=== PATIENT | female | born 1955 | race Caucasian/White ===

== ENCOUNTER → 2019-01-03 | Outpatient (CLI) | payer MEDICARE ==
[2019-01-03 11:36] LABS: Blood Urea Nitrogen 16 mg/dL (7-17)
--- NOTE | 2019-01-03 13:10 | MR ---
EXAMINATION TYPE: MR brain and iac wo/w con DATE OF EXAM: 01/03/2019 COMPARISON: None HISTORY: Hearing loss, dizziness TECHNIQUE: Multiplanar, multisequence images of the brain and brainstem is performed without and with IV contras t, utilizing 7.5 mL intravenous Gadavist . Small [id number], high-resolution images through the in ternal auditory canals. FINDINGS: Diffusion weighted images demonstrate no evidence of a recent infarct or other diffusion ab normality. There is no extra-axial fluid collection or significant white matter signal abnormality. The ventricular system and cisternal spaces are normal in size and appearance. The brain volume is age appropriate. Midline structures demonstrate partially empty sella. There is no cerebellopontine angle mass, inter nal auditory canals show no abnormal enhancement. The craniocervical junction appears within normal l imits. Post contrast images demonstrate no abnormal enhancement. The dural venous sinuses appear pat ent. The orbits are intact. Mild inflammatory change present in the mastoid air cells on the left and right maxillary sinus, ethmoid air cells. IMPRESSION: Mild inflammatory changes left mastoid air cells. No cerebellopontine angle mass. Mild si nus disease.
== END | disposition home or self-care (01) ==
LOC: RADMRIMAIN 10:52
PROVIDERS: ATTEND Otolaryngology
DX: H91.90 Unspecified hearing loss, unspecified ear (principal); J32.9 Chronic sinusitis, unspecified
CPT/HCPCS: 82565; 84520; 70553; 36415; A9585